=== PATIENT | male | born 1965 | race Caucasian/White ===

== ENCOUNTER 2016-09-18 16:47 | Emergency (ER) | payer OTHER ==
[~2016-09-18] VITALS: Wt 74.0 kg
[2016-09-18 16:54] VITALS: Wt 74.0 kg
--- NOTE | 2016-09-18 17:14 | ERD ---
ER Documentation Chief Complaint Date/Time DATE: 09/18/16 TIME: 17:11 Chief Complaint STUNG BY STINGRAY ON LEFT HAND. DRESSING INTACT. SEVERE PAIN . HPI This patient is a 51-year-old male who states he was stung by a stinging on his left hand today a few hours before arriving to the emergency room. He now has pain at the site which is over his fourth digit. His tetanus is up-to-date. He took 2 Tylenol at home for pain. ROS All systems reviewed and are negative except as per history of present illness. Medications Home Meds Active Scripts Hydrocodone/Acetaminophen (Searcy 5-325 Tablet) 1 Each Tablet, 1 TAB PO Q6H Y for PAIN, #20 TAB Prov:LEESA YAÑEZ PA-C 09/18/16 Cephalexin* (Keflex*) 500 Mg Capsule, 500 MG PO QID for 7 Days, CAP Prov:LEESA YAÑEZ PA-C 09/18/16 Ibuprofen* (Motrin*) 600 Mg Tab, 600 MG PO Q6, #30 TAB Prov:LEESA YAÑEZ PA-C 09/18/16 Allergies Allergies: Coded Allergies: No Known Allergy (Unverified , 09/18/16) FmHx Family History: No diabetes Physical Exam Vitals Vital Signs Date Time Temp Pulse Resp B/P Pulse Ox O2 Delivery O2 Flow Rate FiO2 09/18/16 16:54 98.9 87 20 174/88 99 Physical Exam INITIAL VITAL SIGNS: Reviewed by me GENERAL: Awake, alert and oriented x 4, well appearing, nontoxic, speaking in full sentences. No acute distress HEAD: Atraumatic NECK: Supple. No masses. Full range of motion. No meningismus. No midline tenderness. RESPIRATORY: Clear to auscultation bilaterally. Symmetric chest wall rise. No wheezing or rales. No accessory muscle use. CV: Regular rate and rhythm. No murmurs, rubs, or gallops. SKIN: On the dorsal surface of the left hand at the base of the fourth finger there is a small half to 1 cm abrasion, there is no gaping lacerations or bleeding, he has full range of motion in the hand, capillary refill less than 2 seconds, no bony abnormalities Results 24 hrs Current Medications Medications (Trade) Dose Ordered Sig/Anders Route PRN Reason Start Time Stop Time Status Last Admin Dose Admin Acetaminophen/ Hydrocodone Bitart (Searcy (5/325)) 1 tab ONCE ONCE PO 09/18/16 17:30 09/18/16 17:31 DC 09/18/16 17:18 Procedures/MDM 51-year-old was stung by stingray. His tetanus is up-to-date. He has a small abrasion however it is not open and it does not require repair. He was given Sear[place] for pain control and x-ray was ordered. X-ray was unremarkable. Patient was discharged with Keflex, ibuprofen, and Searcy. Patient counseled regarding my diagnostic impression and care plan. Prior to discharge all questions answered. Pt agrees with treatment plan and understands strict return precautions. Pt is instructed to follow up with primary care provider within 24- 48 hours. Precautionary instructions provided including instructions to return to the ER if not improving or for any worsening or changing symptoms or concerns. Departure Diagnosis: Primary Impression: Contact with stingray as cause of accidental injury Condition: LEESA Bonilla PA-C Sep 18, 2016 17:13
[2016-09-18] MEDS ORDERED: HYDROCODONE/APAP (5/325) TAB PO ONE (17:30)
--- NOTE | 2016-09-18 17:43 | RADRPT ---
PROCEDURE: XR Hand. CLINICAL INDICATION: Trauma to the third digit. Pain. TECHNIQUE: Three views of the left hand were obtained. COMPARISON: None available. FINDINGS: There is no acute fracture, dislocation, or other osteoarticular abnormality. The alignm ent is normal and the soft tissues are unremarkable. There is no radiopaque foreign body. The osse ous mineralization is within normal limits. There is a rounded osseous fragment distal to the ulna, consistent with an old ulnar styloid fracture fragment. IMPRESSION: 1. Negative for acute fracture or dislocation. 2. Old ulnar styloid fracture. RPTAT: HLBP .Don Rivera MD, MD Date Time Electronically viewed and signed by .Don Rivera MD, on 09/18/2016 17:42 .P/
[2016-09-18] MEDS ORDERED: IBUP-1542 PO (17:46)
[2016-09-18] MEDS ORDERED: HYDR-906 PO (17:46)
[2016-09-18] MEDS ORDERED: CEPH-443 PO (17:46)
== END 2016-09-18 18:30 | disposition home or self-care (01) ==
LOC: FTE 16:47
DX: T63.511A Toxic effect of contact with stingray, accidental (unintentional), initial encounter (principal)